=== PATIENT | female | born 1955 | race Caucasian/White ===

== ENCOUNTER 2020-06-20 16:44 | Inpatient (IN) | payer MEDICARE, OTHER ==
[~2020-06-20] VITALS: Ht 158.8 cm; Wt 54.0 kg
[~2020-06-20 16:44] MED LIST: CALCITRIOL0.5 MCG PO; CEFUROXIME500 MG PO; COREG6.25 MG PO; DILTIAZEM ER240 M1 PO; ECOTRIN325 MG PO; FLOMAX 0.4 MG0.4 MG PO; HYDROCHLOROTHIA25 MG PO; K-DUR TAB 20 M20 MEQ PO; LOPRESSOR 25 MG25 MG PO; LOPRESSOR100 MG PO; LORTAB 5-325 M1 EACH PO; MEDROL4 MG PO; NEXAVAR200 MG PO; NORCO 5-325 TA1 EACH PO; NORVASC10 MG PO; PRAVACHOL40 MG PO; PRINIVIL10 MG PO; PROVENTIL HFA6.7 GM INH; SYNTHROID175 MCG PO; THERAGRAN M TAB1 EA PO; TOPROL XL100 MG PO; TUMS ULTRA400 MG PO; WARFARIN SODIUM5 MG PO; ZESTRIL40 MG PO; ZYLOPRIM 300 M300 MG PO
[2020-06-20 18:44] LABS: HEMOGLOBIN 10.8 gm/dl (12.3-15.3); RED BLOOD COUNT 3.63 M/UL (4.00-5.10)
[2020-06-20 18:47] LABS: BUN/CREATININE RATIO 19 (0-10)
[2020-06-20] MEDS ORDERED: PACERONE200 MG PO (22:20)
[2020-06-20] MEDS ORDERED: HYDROCHLOROTHIA25 MG PO (22:22)
[2020-06-20] MEDS ORDERED: LASIX20 MG PO (22:23)
[2020-06-20] MEDS ORDERED: METOPROLOL SUCC50 MG PO (22:23)
[2020-06-20] MEDS ORDERED: LEVOTHYROXINE137 MC1 PO (22:24)
[2020-06-20] MEDS ORDERED: METFORMIN HCL1000 MG PO (22:25)
[2020-06-21 06:32] LABS: HEMOGLOBIN 9.3 gm/dl (12.3-15.3); RED BLOOD COUNT 3.13 M/UL (4.00-5.10); WHITE BLOOD COUNT 8.4 K/UL (4.5-11.0)
[2020-06-21 07:03] LABS: BUN/CREATININE RATIO 18 (0-10)
[2020-06-21] MEDS ORDERED: TOPROL XL50 MG PO (08:49)
[2020-06-21] MEDS ORDERED: GLUCOPHAGE1000 MG PO (08:49)
[2020-06-21] MEDS ORDERED: CALCITRIOL0.25 MCG PO (08:51)
[2020-06-21] MEDS ORDERED: LEVOTHYROXINE150 MCG PO (08:51)
[2020-06-21] MEDS ORDERED: TUMS ULTRA400 MG PO (08:52)
[2020-06-21] MEDS ORDERED: IMODIUM CAP 2 MG2 MG PO (08:52)
[2020-06-21] MEDS ORDERED: MAGOX 400400 MG PO (08:53)
[2020-06-21] MEDS ORDERED: ALPHAGAN P OP SO5 ML EYEBOTH (09:24)
[2020-06-21] MEDS ORDERED: NEXAVAR200 MG PO (09:24)
[2020-06-21] MEDS ORDERED: ROCALTROL CA0.25 MCG PO (09:34)
[2020-06-22] MEDS ORDERED: BRIMONIDINE TAR15 ML EYEBOTH (09:05)
[2020-06-22] MEDS ORDERED: ASPIRIN EC81 MG PO (09:08)
--- NOTE | 2020-06-22 11:00 | NUR ---
NO CHANGE FROM PREVIOUS ASSESSMENT
--- NOTE | 2020-06-22 15:54 | NUR ---
NO CHANGE FROM PREVIOUS ASSESSMENT
[2020-06-22] MEDS ORDERED: VITAMIN B-12 PO (22:27)
[2020-06-23 09:14] LABS: CREATININE, URINE 57.2 mg/dL (Not Estab.)
--- NOTE | 2020-06-23 11:00 | NUR ---
NO CHANGE FROM PREVIOUS ASSESSMENT
[2020-06-23] MEDS ORDERED: CALCIUM500 M1 PO (15:16)
[2020-06-23] MEDS ORDERED: LASIX40 MG PO (15:16)
[2020-06-23] MEDS ORDERED: TRADJENTA5 MG PO (15:16)
[2020-06-23] MEDS ORDERED: VITAMIN B-121000 MC3 PO (15:16)
[2020-06-23] MEDS ORDERED: K-TAB ER10 MEQ PO (15:21)
== END 2020-06-23 16:26 | disposition home or self-care (01) | DRG 308 ==
LOC: ER1 16:44 → PROG CARE 19:17
PROVIDERS: Emergency Medicine; Internal Medicine; Internal Medicine Nephrology; ADMIT Internal Medicine
DX: I49.5 Sick sinus syndrome (principal); J96.01 Acute respiratory failure with hypoxia; N18.4 Chronic kidney disease, stage 4 (severe); I48.20 Chronic atrial fibrillation, unspecified; N17.9 Acute kidney failure, unspecified; Z20.822 Contact with and (suspected) exposure to COVID-19; M06.9 Rheumatoid arthritis, unspecified; E11.22 Type 2 diabetes mellitus with diabetic chronic kidney disease; E03.9 Hypothyroidism, unspecified; T38.3X5A Adverse effect of insulin and oral hypoglycemic [antidiabetic] drugs, initial encounter; E87.5 Hyperkalemia; E83.51 Hypocalcemia; I48.0 Paroxysmal atrial fibrillation; Z79.01 Long term (current) use of anticoagulants; T46.2X5A Adverse effect of other antidysrhythmic drugs, initial encounter; T46.1X5A Adverse effect of calcium-channel blockers, initial encounter; Z85.850 Personal history of malignant neoplasm of thyroid; Z79.4 Long term (current) use of insulin; Z90.49 Acquired absence of other specified parts of digestive tract; Z98.42 Cataract extraction status, left eye; Z98.41 Cataract extraction status, right eye; Z88.1 Allergy status to other antibiotic agents; Z88.0 Allergy status to penicillin; Z88.2 Allergy status to sulfonamides; Z82.49 Family history of ischemic heart disease and other diseases of the circulatory system
CPT/HCPCS: 36415; 71045; 80048; 80053; 81001; 82040; 82043; 82310; 82550; 82553; 82570; 82728; 82962; 83036; 83540; 83550; 83735; 83874; 84156; 84439; 84443; 84484; 85025; 85610; 93005; 96374; 99285; J0360; J0461; J0610; J1650; J2405; J2550; J7030; U0002

== ENCOUNTER → 2020-08-09 | Outpatient (CLI) | payer MEDICARE, OTHER ==
[~2020-08-09] MED LIST changes: +ALPHAGAN P OP SO5 ML EYEBOTH; +ASPIRIN EC81 MG PO; +BRIMONIDINE TAR15 ML EYEBOTH; +CALCITRIOL0.25 MCG PO; +CALCIUM500 M1 PO; +GLUCOPHAGE1000 MG PO; +IMODIUM CAP 2 MG2 MG PO; +K-TAB ER10 MEQ PO; +LASIX20 MG PO; +LASIX40 MG PO; +LEVOTHYROXINE137 MC1 PO; +LEVOTHYROXINE150 MCG PO; +MAGOX 400400 MG PO; +METFORMIN HCL1000 MG PO; +METOPROLOL SUCC50 MG PO; +PACERONE200 MG PO; +ROCALTROL CA0.25 MCG PO; +TOPROL XL50 MG PO; +TRADJENTA5 MG PO; +VITAMIN B-12 PO; +VITAMIN B-121000 MC3 PO
== END ==
LOC: EXRD 11:30
DX: N17.9 Acute kidney failure, unspecified (principal)
CPT/HCPCS: 76775

== ENCOUNTER 2020-08-26 03:24 | Emergency (ER) | payer MEDICARE, OTHER ==
[2020-08-26 03:42] LABS: HEMOGLOBIN 10.9 gm/dl (12.3-15.3); RED BLOOD COUNT 3.68 M/UL (4.00-5.10); WHITE BLOOD COUNT 6.9 K/UL (4.5-11.0)
[2020-08-26 04:08] LABS: BUN/CREATININE RATIO 16 (0-10)
== END 2020-08-26 08:40 | disposition short-term general hospital (02) ==
LOC: ER1 03:24
PROVIDERS: Internal Medicine
DX: R47.01 Aphasia (principal); R20.0 Anesthesia of skin; R53.1 Weakness; E11.9 Type 2 diabetes mellitus without complications; I10 Essential (primary) hypertension; Z20.822 Contact with and (suspected) exposure to COVID-19; Z88.0 Allergy status to penicillin; Z79.01 Long term (current) use of anticoagulants
CPT/HCPCS: 70450; 80053; 82550; 82553; 83874; 84484; 85025; 85610; 85730; 93005; 99285; U0002